=== PATIENT | female | born 1970 | race Caucasian/White ===

== ENCOUNTER 2016-08-16 03:10 | Emergency (ER) | payer SELFPAY ==
[~2016-08-16] VITALS: Ht 171.4 cm; Wt 46.7 kg
[~2016-08-16 03:10] MED LIST: ACET325T9 PO; CHOL100013 PO; LORA10TA68 PO
[2016-08-16 04:20] LABS: BASO # 0.1 x10^3/uL (0.0-0.2); BASO % 1 % (0-3); EOS # 0.5 x10^3/uL (0.0-0.7); EOS % 4 % (0-3); HEMATOCRIT 42.4 % (36.0-47.0); HEMOGLOBIN 14.3 g/dL (12.0-15.5); LYMPH # 2.8 x10^3/uL (1.0-4.8); LYMPH % 27 % (24-48); MEAN CORPUSCULAR HEMOGLOBIN 31 pg (25-35); MEAN CORPUSCULAR HGB CONC 34 g/dL (31-37); MEAN CORPUSCULAR VOLUME 93 fL (79-100); MONO # 0.7 x10^3/uL (0.0-1.1); MONO % 7 % (0-9); NEUT # 6.5 x10^3uL (1.8-7.7); NEUT % 61 % (31-73); PLATELET COUNT 319 x10^3/uL (140-400); RED BLOOD COUNT 4.59 x10^6/uL (3.50-5.40); RED CELL DISTRIBUTION WIDTH 14.3 % (11.5-14.5); WHITE BLOOD COUNT 10.7 x10^3/uL (4.0-11.0)
[2016-08-16 04:29] LABS: BARBITURATES NEG (NEG); BENZODIAZEPINES NEG (NEG); CANNABINOIDS NEG (NEG); COCAINE NEG (NEG); METHADONE NEG (NEG); OPIATES NEG (NEG); PHENCYCLIDINE NEG (NEG)
[2016-08-16 04:30] LABS: AMPHETAMINE/METHAMPHETAMINE NEG (NEG)
[2016-08-16 04:34] LABS: BACTERIA,URINE 0 /HPF (0-FEW); BILIRUBIN,URINE NEG (NEG); CLARITY,URINE CLEAR; COLOR,URINE YELLOW; GLUCOSE,URINE NEG (NEG); NITRITE,URINE NEG (NEG); RBC,URINE RARE /HPF (0-2); SQUAMOUS EPITHELIAL CELL,UR OCC /LPF; UROBILINOGEN,URINE 0.2 mg/dL (0.2 mg/dL); WBC,URINE RARE /HPF (0-4)
[2016-08-16 04:34] LABS: ALBUMIN 4.7 g/dL (3.4-5.0); ALBUMIN/GLOBULIN RATIO 1.3 (1.0-1.7); CALCIUM 9.1 mg/dL (8.5-10.1); CREATININE 0.8 mg/dL (0.6-1.0); GFR 77.9; POTASSIUM 3.7 mmol/L (3.5-5.1); TOTAL BILIRUBIN 0.5 mg/dL (0.2-1.0); TOTAL PROTEIN 8.3 g/dL (6.4-8.2)
--- NOTE | 2016-08-16 05:01 | PHYS DOC ---
Past History Past Medical History: Anxiety, Bipolar, Depression, Gallstones, GERD, Heart Disease, [place], Other Past Surgical History: Other Alcohol Use: None Drug Use: None Adult General Chief Complaint Chief Complaint: OTHER COMPLAINTS HPI HPI Patient is a 46-year-old female with history significant for bipolar affective disorder as well as depression presents here today secondary to having a mental breakdown. Patient feels like she is having a mental breakdown because her house is haunted. Patient reports that she is having visual hallucinations and seeing things in her house. Patient reports that she had a previous, doing exercises when her house however she still seen people as well as cats moving around in her house. Patient reports that she has not been on any of her medication for quite a while and thinks that she is having a nervous breakdown and feels that her mental health is not in a state where she is able to manage and handle her haunted house. Patient is requesting assistance with managing her her mental health. Patient has shown me a picture on her iPhone of what she thinks is an apparition. The patient that I visualized did have some blurriness however I was unable to make out whether or not this was due to technique whether or not there was an apparition on the picture. Patient denies any other symptomatology. Patient has any fevers shakes chills nausea vomiting diarrhea chest pain shortness of breath cough cold or rhinorrhea. Patient denies any suicidal ideation. Patient has any depression. Patient's physical exam is unremarkable. She is alert awake and oriented 3. Patient does not feel that the hallucinations she's having is secondary to mental health issues however she feels her mental health is not an opacity where she is able to manage the visions that she is seeing in her home. She is requesting evaluation by mental health to assist her to be put back on her medications that she has been noncompliant with for several months now. Assessment and plan 46-year-old female presents here today requesting mental health evaluation secondary to having a mental breakdown secondary to what she believes is a haunted house. Patient with a history of bipolar affective disorder and she is noncompliant with her medications at this time. We will have telemetry psych evaluate patient. Patient has been medically cleared. Patient's urine drug screen is negative. Patient's alcohol level 0. Patient's labs are all within normal limits. Review of Systems Review of Systems Constitutional: Denies fever or chills [] Eyes: Denies change in visual acuity, redness, or eye pain [] All other review systems are negative except as documented in the history of present illness portion. Allergies Allergies Allergies Coded Allergies Type Severity Reaction Last Updated Verified No Known Drug Allergies 10/03/14 No Physical Exam Physical Exam Constitutional: Well developed, well nourished, no acute distress, non-toxic appearance. [] HENT: Normocephalic, atraumatic, bilateral external ears normal, Eyes: PERRLA, EOMI, conjunctiva normal, no discharge. [] Neck: Normal range of motion, no tenderness, supple, no stridor. [] Cardiovascular:Heart rate regular rhythm, Lungs & Thorax: Bilateral breath sounds clear to auscultation [] Abdomen: Bowel sounds normal, soft, no tenderness, no masses, no pulsatile masses. [] Skin: Warm, dry, no erythema, no rash. [] Back: No tenderness, no CVA tenderness. [] Extremities: No tenderness, no cyanosis, no clubbing, ROM intact, no edema. [] Neurologic: Alert and oriented X 3, normal motor function, normal sensory function, no focal deficits noted. [] Psychologic: Affect normal, judgement normal, mood normal. [] Current Patient Data Vital Signs Vital Signs Date Time Temp Pulse Resp B/P (MAP) Pulse Ox O2 Delivery O2 Flow Rate FiO2 08/16/16 03:15 97.9 85 18 99 Room Air Lab Results Laboratory Tests Test 08/16/16 03:49 08/16/16 04:05 Urine Collection Type Unknown Urine Color Yellow Urine Clarity Clear Urine pH 6.5 Urine Specific [place] <=1.005 Urine Protein Neg (NEG-TRACE) Urine Glucose (UA) Neg mg/dL (NEG) Urine Ketones (Stick) Neg mg/dL (NEG) Urine Blood Trace (NEG) Urine Nitrite Neg (NEG) Urine Bilirubin Neg (NEG) Urine Urobilinogen Dipstick 0.2 mg/dL (0.2 mg/dL) Urine Leukocyte Esterase Neg (NEG) Urine RBC Rare /HPF (0-2) Urine WBC Rare /HPF (0-4) Urine Squamous Epithelial Cells Occ /LPF Urine Bacteria 0 /HPF (0-FEW) Urine Opiates Screen Neg (NEG) Urine Methadone Screen Neg (NEG) Urine Barbiturates Neg (NEG) Urine Phencyclidine Screen Neg (NEG) Urine Amphetamine/Methamphetamine Neg (NEG) Urine Benzodiazepines Screen Neg (NEG) Urine Cocaine Screen Neg (NEG) Urine Cannabinoids Screen Neg (NEG) Urine Ethyl Alcohol Neg (NEG) White Blood Count 10.7 x10^3/uL (4.0-11.0) Red Blood Count 4.59 x10^6/uL (3.50-5.40) Hemoglobin 14.3 g/dL (12.0-15.5) Hematocrit 42.4 % (36.0-47.0) Mean Corpuscular Volume 93 fL (79-100) Mean Corpuscular Hemoglobin 31 pg (25-35) Mean Corpuscular Hemoglobin Concent 34 g/dL (31-37) Red Cell Distribution Width 14.3 % (11.5-14.5) Platelet Count 319 x10^3/uL (140-400) Neutrophils (%) (Auto) 61 % (31-73) Lymphocytes (%) (Auto) 27 % (24-48) Monocytes (%) (Auto) 7 % (0-9) Eosinophils (%) (Auto) 4 % (0-3) H Basophils (%) (Auto) 1 % (0-3) Neutrophils # (Auto) 6.5 x10^3uL (1.8-7.7) Lymphocytes # (Auto) 2.8 x10^3/uL (1.0-4.8) Monocytes # (Auto) 0.7 x10^3/uL (0.0-1.1) Eosinophils # (Auto) 0.5 x10^3/uL (0.0-0.7) Basophils # (Auto) 0.1 x10^3/uL (0.0-0.2) Sodium Level 141 mmol/L (136-145) Potassium Level 3.7 mmol/L (3.5-5.1) Chloride Level 101 mmol/L (98-107) Carbon Dioxide Level 29 mmol/L (21-32) Anion Gap 11 (6-14) Blood Urea Nitrogen 6 mg/dL (7-20) L Creatinine 0.8 mg/dL (0.6-1.0) Estimated GFR (Cockcroft-Gault) 77.9 BUN/Creatinine Ratio 8 (6-20) Glucose Level 99 mg/dL (70-99) Calcium Level 9.1 mg/dL (8.5-10.1) Total Bilirubin 0.5 mg/dL (0.2-1.0) Aspartate Amino Transferase (AST) 21 U/L (15-37) Alanine Aminotransferase (ALT) 35 U/L (14-59) Alkaline Phosphatase 62 U/L (46-116) Total Protein 8.3 g/dL (6.4-8.2) H Albumin 4.7 g/dL (3.4-5.0) Albumin/Globulin Ratio 1.3 (1.0-1.7) Ethyl Alcohol Level < 10 mg/dL (0-10) EKG EKG [] Radiology/Procedures Radiology/Procedures [] Impressions: Bipolar disease Depression Course & Med Decision Making Course & Med Decision Making Pertinent Labs and Imaging studies reviewed. (See chart for details) Although I was not involved in this lady's care talked with the registered nurse maternal child on the "tele Psych" line. He basically told me that he thought she would do fine on Seroquel 50 mg at bedtime, and that he did not feel that he needed hospitalization but states that she felt she needed to be taken care of if we could try to find placement. At approximately 6:45 AM she told the nurses that she wants to be discharged. I have written a prescription for Seroquel. And she is to follow-up. At the patient's request I called her physician Dr. Licona. I informed Dr. Licona of the patient's visit here and the findings of the telepsych registered nurse maternal child. She expressed surprise that they did not feel that patient needed to be placed however they did feel that we can continue to try to place her. Dr. Licona supported our decision to try to place her , however the patient does not want to wait for this. [] Dragon Disclaimer Dragon Disclaimer This chart was dictated in whole or in part using Voice Recognition software in a busy, high-work load, and often noisy Emergency Department environment. It may contain unintended and wholly unrecognized errors or omissions. Departure Departure: Impression: Primary Impression: Hallucinations Additional Impressions: Anxiety Bipolar affective disorder Referrals: RADHA BE-Epifanio (PCP) Scripts Quetiapine Fumarate (SEROQUEL) 50 Mg Tablet 1 TAB PO QHS, #10 TAB 2 Refills Prov: RADHA VELASQUEZ MD 08/16/16 Problem Qualifiers ROSIBEL SANTACRUZ MD Aug 16, 2016 05:01 RADHA VELASQUEZ MD Aug 16, 2016 06:50
[2016-08-16 06:25] VITALS: BP 109/69
[2016-08-16] MEDS ORDERED: QUET50TA5 PO (06:53)
== END 2016-08-16 07:15 | disposition home or self-care (01) ==
LOC: ER 03:10
DX: R44.3 Hallucinations, unspecified (principal); F31.9 Bipolar disorder, unspecified; F41.9 Anxiety disorder, unspecified; K21.9 Gastro-esophageal reflux disease without esophagitis; I51.9 Heart disease, unspecified; I25.2 Old myocardial infarction
CPT/HCPCS: 36415; 80053; 80305; 80320; 81001; 85027; 99284; G0480; G0481

== ENCOUNTER 2016-09-12 18:42 | Emergency (ER) | payer MEDICAID ==
[~2016-09-12] VITALS: Ht 171.4 cm; Wt 47.6 kg
[~2016-09-12 18:42] MED LIST changes: +QUET50TA5 PO
--- NOTE | 2016-09-12 21:03 | PHYS DOC ---
Text Text Patient was checked out to me to be evaluated for possible admission for her depression. She is not SI or HI. She was seen by guidance Center and offer outpatient follow-up there. Patient's being discharged home. She is return the ER she has any thoughts of harming herself or anybody else, or has any other concerns. She's to follow-up the guidance Center later today. Steve with the guidance Center evaluated her and states she's safe to be discharged. (OLY AWAN MD) General Chief Complaint: ANXIETY/PANIC ATTACK Stated Complaint: UNABLE TO CARE FOR SELF Time Seen by MD: 19:07 Source: patient, old records Exam Limitations: clinical condition Problems: (LAUREN FLORES DO) Time Seen by MD: 09:24 Problems: (OLY AWAN MD) History of Present Illness Initial Comments Patient is a 46-year-old female with history of bipolar disorder who comes to the ED complaining of anxiety and inability to care for herself. Patient states that her house is haunted and that she sees people and cats in her house who should not be there. She says she is at the end of her rope and is unable to tolerate living in a haunted house any longer. She claims to have photographs of ghosts and is requesting that we find her a new place to live. She freely admits that she has 5 psychiatric disorders but states they have nothing to do with why she is coming here tonight. She also admits to noncompliance with her medications. She denies any physical complaints she denies suicidal or homicidal ideation. Patient presented to this facility with nearly identical complaint and history of present illness on August 16 of this year, she was medically cleared for tele- psych evaluation. On that day tele-psych did not feel she required inpatient treatment and recommended that she be discharged home taking Seroquel at bedtime. Patient follows with Dr. Licona for primary care issues. Timing/Duration: unsure Severity: severe Modifying Factors: improves with other Associated Symptoms: other (LAUREN FLORES DO) Allergies: Coded Allergies: No Known Drug Allergies (Unverified , 10/03/14) Past Medical History Medical History: other (CAD, gallstones, GERD, [place], noncompliance with medications) Surgical History: angioplasty Psychosocial History: anxiety, bipolar, depression (LAUREN FLORES DO) Social History Smoker: non-smoker Alcohol: none Drugs: none (LAUREN FLORES DO) Review of Systems Constitutional: denies chills, denies fever Respiratory: denies cough, denies shortness of breath Cardiovascular: denies chest pain, denies palpitations Gastrointestinal: denies nausea, denies vomiting Genitourinary: denies frequency, denies hematuria Musculoskeletal: denies back pain, denies joint swelling, denies neck pain Psychiatric/Neurological: see HPI Hematologic/Lymphatic: denies easy bleeding, denies easy bruising (LAUREN FLORES DO) Physical Exam General Appearance: no apparent distress, thin Eyes: bilateral eye normal inspection, bilateral eye PERRL, bilateral eye EOMI Ear, Nose, Throat: hearing grossly normal, normal ENT inspection, normal pharynx Neck: non-tender, supple Respiratory: normal breath sounds, no respiratory distress Cardiovascular: normal peripheral pulses, regular rate, rhythm Gastrointestinal: non tender, soft Back: no CVA tenderness, no vertebral tenderness Extremities: normal range of motion, non-tender Neurologic/Psychiatric: certified paralegal II-XII nml as tested, no motor/sensory deficits, alert, depressed affect, other (although pt has altered thought process she is AOx3. +visual hallucinations reported, none witnessed in ED) Skin: normal color, warm/dry (LAUREN FLORES DO) Orders, Labs, Meds EKG: NSR 87 bpm, no STEMI. Interpreted by Dr Flores CBC w/diff, CMP, UA, Trop I, UDS, etoh all unremarkable. Salicylate 1.8, acetaminophen <2 2254: Pt cleared for telepsych evaluation 0120: Pt has been sleeping, VSS, no complaints. Telepsych is talking with the patient currently. 0204: Tele-psych diagnosis: Bipolar 1 disorder, current or most recent episode depressed, with psychotic features Recommendations: Transfer patient to inpatient psychiatric facility for acute stabilization once medically cleared. Continue observation precautions and monitoring for suicidality and paranoia Restart Seroquel at prior discharge dose or 50 mg daily at bedtime if unable to verify home dose and for medication management to primary team at inpatient facility. May use hydroxyzine 25 mg by mouth every 6 hours when necessary anxiety in the interim additionally. Consider contacting family with the patient's permission during daytimes hours if needed for collateral information Patient would likely benefit from outpatient counseling or therapy for distress intolerance and coping skills once discharged from the inpatient unit 0206: ED staff trying to find placement. 0438: Patient is sleeping, while sleeping her SBP does dip to low 80's maintaining O2sats > 90%. She is easily rousable and denies any symptoms. RN still seeking placement. 0614: Placement pending, pt signed out to Dr Awan at 0600 shift change. (LAUREN FLORES DO) Departure Time of Disposition: 02:07 (LAUREN FLORES DO) Disposition: 01 HOME, SELF-CARE Diagnosis: bipolar 1 disorder with psychotic features Condition: STABLE Patient Instructions: Depression, Adult Additional Instructions: You were seen today for your depression. Your being discharged home. You were seen by the guidance Center and you can go there for a follow-up and they can help you fill out paperwork and obtain medicines. LAUREN FLORES DO Sep 12, 2016 21:03 OLY AWAN MD Sep 13, 2016 09:39
[2016-09-12 21:58] LABS: BASO # 0.1 x10^3/uL (0.0-0.2); BASO % 1 % (0-3); EOS # 0.4 x10^3/uL (0.0-0.7); EOS % 5 % (0-3); HEMATOCRIT 40.1 % (36.0-47.0); HEMOGLOBIN 13.6 g/dL (12.0-15.5); LYMPH # 3.1 x10^3/uL (1.0-4.8); LYMPH % 40 % (24-48); MEAN CORPUSCULAR HEMOGLOBIN 32 pg (25-35); MEAN CORPUSCULAR HGB CONC 34 g/dL (31-37); MEAN CORPUSCULAR VOLUME 95 fL (79-100); MONO # 0.5 x10^3/uL (0.0-1.1); MONO % 6 % (0-9); NEUT # 3.8 x10^3uL (1.8-7.7); NEUT % 48 % (31-73); PLATELET COUNT 313 x10^3/uL (140-400); RED BLOOD COUNT 4.25 x10^6/uL (3.50-5.40); WHITE BLOOD COUNT 7.9 x10^3/uL (4.0-11.0)
[2016-09-12 22:06] LABS: CALCIUM 8.7 mg/dL (8.5-10.1); CREATININE 0.8 mg/dL (0.6-1.0); DIRECT BILIRUBIN 0.1 mg/dL (0.0-0.2); GFR 77.9; POTASSIUM 3.8 mmol/L (3.5-5.1); TOTAL BILIRUBIN 0.3 mg/dL (0.2-1.0); TOTAL PROTEIN 6.8 g/dL (6.4-8.2)
[2016-09-12 22:24] LABS: SALIC 1.8 mg/dL (2.8-20.0)
[2016-09-12 22:25] LABS: ACETAMIN < 2.0 mcg/mL (10-30); ETHANOL < 10 mg/dL (0-10)
[2016-09-12 22:35] LABS: BILIRUBIN,URINE NEG (NEG); CLARITY,URINE HAZY; COLOR,URINE YELLOW; GLUCOSE,URINE NEG (NEG); NITRITE,URINE NEG (NEG); UROBILINOGEN,URINE 1 mg/dL (0.2 mg/dL)
[2016-09-12 22:36] LABS: AMPHETAMINE/METHAMPHETAMINE NEG (NEG); BACTERIA,URINE 0 /HPF (0-FEW); BARBITURATES NEG (NEG); BENZODIAZEPINES NEG (NEG); CANNABINOIDS NEG (NEG); COCAINE NEG (NEG); METHADONE NEG (NEG); OPIATES NEG (NEG); PHENCYCLIDINE NEG (NEG); SQUAMOUS EPITHELIAL CELL,UR FEW /LPF
--- NOTE | 2016-09-13 02:38 | EKG ---
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
[2016-09-13 09:31] VITALS: BP 100/60
== END 2016-09-13 09:55 | disposition home or self-care (01) ==
LOC: ER 18:42
DX: F28 Other psychotic disorder not due to a substance or known physiological condition (principal); F31.9 Bipolar disorder, unspecified; I25.10 Atherosclerotic heart disease of native coronary artery without angina pectoris; K21.9 Gastro-esophageal reflux disease without esophagitis; I25.2 Old myocardial infarction; Z98.61 Coronary angioplasty status; Z91.14 Patient's other noncompliance with medication regimen
CPT/HCPCS: 36415; 80048; 80076; 80305; 81001; 84484; 85027; 87086; 93005; 99285; G0480; G0481

== ENCOUNTER 2016-09-30 16:09 | Emergency (ER) | payer MEDICAID, OTHER ==
[~2016-09-30] VITALS: Ht 171.4 cm; Wt 47.6 kg
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
[2016-09-30 16:57] LABS: AMPHETAMINE/METHAMPHETAMINE NEG (NEG); BARBITURATES NEG (NEG); BENZODIAZEPINES NEG (NEG); CANNABINOIDS NEG (NEG); COCAINE NEG (NEG); METHADONE NEG (NEG); OPIATES NEG (NEG); PHENCYCLIDINE NEG (NEG)
[2016-09-30 17:00] LABS: BACTERIA,URINE 0 /HPF (0-FEW); BILIRUBIN,URINE NEG (NEG); CLARITY,URINE CLEAR; COLOR,URINE YELLOW; GLUCOSE,URINE NEG (NEG); NITRITE,URINE NEG (NEG); SQUAMOUS EPITHELIAL CELL,UR FEW /LPF; UROBILINOGEN,URINE 0.2 mg/dL (0.2 mg/dL)
[2016-09-30 17:09] LABS: BASO # 0.1 x10^3/uL (0.0-0.2); BASO % 2 % (0-3); EOS # 0.4 x10^3/uL (0.0-0.7); EOS % 5 % (0-3); HEMATOCRIT 39.3 % (36.0-47.0); HEMOGLOBIN 13.4 g/dL (12.0-15.5); LYMPH # 2.4 x10^3/uL (1.0-4.8); LYMPH % 33 % (24-48); MEAN CORPUSCULAR HEMOGLOBIN 32 pg (25-35); MEAN CORPUSCULAR HGB CONC 34 g/dL (31-37); MEAN CORPUSCULAR VOLUME 95 fL (79-100); MONO # 0.4 x10^3/uL (0.0-1.1); MONO % 5 % (0-9); NEUT # 3.9 x10^3uL (1.8-7.7); NEUT % 55 % (31-73); PLATELET COUNT 288 x10^3/uL (140-400); RED BLOOD COUNT 4.14 x10^6/uL (3.50-5.40); RED CELL DISTRIBUTION WIDTH 13.9 % (11.5-14.5); WHITE BLOOD COUNT 7.2 x10^3/uL (4.0-11.0)
[2016-09-30 17:44] LABS: CALCIUM 8.9 mg/dL (8.5-10.1); CREATININE 0.8 mg/dL (0.6-1.0); DIRECT BILIRUBIN 0.1 mg/dL (0.0-0.2); GFR 77.9; MAGNESIUM 2.4 mg/dL (1.8-2.4); POTASSIUM 3.9 mmol/L (3.5-5.1); TOTAL BILIRUBIN 0.4 mg/dL (0.2-1.0); TOTAL PROTEIN 6.9 g/dL (6.4-8.2)
[2016-09-30 17:46] LABS: ACETAMIN < 2 mcg/mL (10-30); ETHANOL < 10 mg/dL (0-10); SALIC 3.5 mg/dL (2.8-20.0)
[2016-09-30] MEDS ORDERED: OLANZapine 10 MG TABLET PO ONE (20:30)
[2016-09-30 23:00] VITALS: BP 102/62
== END 2016-09-30 23:15 ==
LOC: EEVIPCON 16:09 → ER 16:09
DX: R45.850 Homicidal ideations (principal); R44.0 Auditory hallucinations; R44.1 Visual hallucinations; F20.9 Schizophrenia, unspecified; F31.9 Bipolar disorder, unspecified; F41.9 Anxiety disorder, unspecified; K21.9 Gastro-esophageal reflux disease without esophagitis; F17.210 Nicotine dependence, cigarettes, uncomplicated; I25.2 Old myocardial infarction; I51.9 Heart disease, unspecified; F12.10 Cannabis abuse, uncomplicated
CPT/HCPCS: 36415; 80048; 80076; 80307; 81001; 82306; 82607; 83540; 83550; 83735; 84443; 85027; 99285; G0480; G0479

== ENCOUNTER 2016-10-15 23:21 | Emergency (ER) | payer OTHER ==
[~2016-10-15] VITALS: Ht 171.4 cm; Wt 47.6 kg
[2016-10-16 00:09] LABS: CLARITY,URINE CLEAR; COLOR,URINE STRAW
[2016-10-16 00:10] LABS: BILIRUBIN,URINE NEG (NEG); GLUCOSE,URINE NEG (NEG); NITRITE,URINE NEG (NEG); UROBILINOGEN,URINE 0.2 mg/dL (0.2 mg/dL)
[2016-10-16 00:11] LABS: BACTERIA,URINE FEW /HPF (0-FEW); RBC,URINE RARE /HPF (0-2); SQUAMOUS EPITHELIAL CELL,UR OCC /LPF; WBC,URINE 0 /HPF (0-4)
[2016-10-16] MEDS ORDERED: CYCLOBENZAPRINE 10 MG TABLET. PO ONE (00:15)
[2016-10-16] MEDS ORDERED: flexeril (00:19)
[2016-10-16 00:21] VITALS: BP 106/78
--- NOTE | 2016-10-16 00:29 | PHYS DOC ---
Past History Past Medical History: Anxiety, Bipolar, Depression, Gallstones, GERD, Heart Disease, [place], Other Past Surgical History: Hysterectomy, Other Smoking: Cigarettes, Greater than 1 pack/day Alcohol Use: None Drug Use: Marijuana Adult General Chief Complaint Chief Complaint: BACK PAIN OR INJURY HPI HPI Patient is a 46 year old F who presents with chronic back pain. Carmela states that over the past 3 days her chronic upper back pain has been worse. She feels that it worsens throughout the day and is worse at night. She states that when the pain is severe she notices nausea and shortness of breath. She denies both of these symptoms on evaluation. She states that since she arrived via EMS her pain is radiated to the lower back. She feels that her pain is worsened with movement and palpation. She feels that her pain is improved with rest and positioning. She also has chronic abdominal pain stating that she has had everything removed as it can be removed and is waiting for multiple tests on her abdomen. Review of Systems Review of Systems Constitutional: Denies fever or chills [] Eyes: Denies change in visual acuity, redness, or eye pain [] HENT: Denies nasal congestion or sore throat [] Respiratory: Denies cough or shortness of breath [] Cardiovascular: No additional information not addressed in HPI [] GI: Negative except history of present illness : Denies dysuria or hematuria [] Musculoskeletal: Negative except history of present illness Integument: Denies rash or skin lesions [] Neurologic: Denies headache, focal weakness or sensory changes [] Endocrine: Denies polyuria or polydipsia [] Family History Family History Noncontributory Current Medications Current Medications Medications were reviewed. Allergies Allergies Allergies Coded Allergies Type Severity Reaction Last Updated Verified No Known Drug Allergies 10/03/14 No Physical Exam Physical Exam Constitutional: Well developed, well nourished, no acute distress, non-toxic appearance. [] HENT: Normocephalic, atraumatic, bilateral external ears normal, oropharynx moist, no oral exudates, nose normal. [] Eyes: PERRLA, EOMI, conjunctiva normal, no discharge. [] Neck: Normal range of motion, no tenderness, supple, no stridor. [] Cardiovascular:Heart rate regular rhythm, no murmur [] Lungs & Thorax: Bilateral breath sounds clear to auscultation [] Abdomen: Bowel sounds normal, soft, no masses, no pulsatile masses. [] Inconsistent exam. Occasional generalized tenderness to palpation of proportion with exam. Skin: Warm, dry, no erythema, no rash. [] Back: Mild tenderness to palpation in the paraspinal muscles in the thoracic and lumbar region. No obvious signs of injury. No bony tenderness Extremities: No tenderness, no cyanosis, no clubbing, ROM intact, no edema. [] Neurologic: Alert and oriented X 3, normal motor function, normal sensory function, no focal deficits noted. [] Psychologic: Affect normal, judgement normal, mood normal. [] Current Patient Data Vital Signs Vital Signs Date Time Temp Pulse Resp B/P (MAP) Pulse Ox O2 Delivery O2 Flow Rate FiO2 10/15/16 23:26 97.6 81 20 100 Room Air Lab Results Laboratory Tests Test 10/15/16 23:45 Urine Collection Type Unknown Urine Color Straw Urine Clarity Clear Urine pH 7.0 Urine Specific [place] 1.010 Urine Protein Neg (NEG-TRACE) Urine Glucose (UA) Neg mg/dL (NEG) Urine Ketones (Stick) Neg mg/dL (NEG) Urine Blood Neg (NEG) Urine Nitrite Neg (NEG) Urine Bilirubin Neg (NEG) Urine Urobilinogen Dipstick 0.2 mg/dL (0.2 mg/dL) Urine Leukocyte Esterase Neg (NEG) Urine RBC Rare /HPF (0-2) Urine WBC 0 /HPF (0-4) Urine Squamous Epithelial Cells Occ /LPF Urine Transitional Epithelial Cells Occ /LPF Urine Bacteria Few /HPF (0-FEW) Course & Med Decision Making Course & Med Decision Making Pertinent Labs and Imaging studies reviewed. (See chart for details) Carmeal describes her symptom is chronic other than the pain radiating to her lower back. Dragon Disclaimer Dragon Disclaimer This chart was dictated in whole or in part using Voice Recognition software in a busy, high-work load, and often noisy Emergency Department environment. It may contain unintended and wholly unrecognized errors or omissions. Departure Departure: Impression: Primary Impression: Muscle spasm Disposition: HOME, SELF-CARE Condition: STABLE Referrals: NON,STAFF (PCP) Patient Instructions: Back Pain, Adult Additional Instructions: Carmela was seen in the emergency room for back pain. No emergency medical condition was found on history or physical exam. She does have a history of chronic upper back pain however she feels that it has been radiating to the lower back since her ambulance ride this evening. Her pain was most consistent with muscle spasm. She was given Flexeril and the emergency room and a prescription. She is advised follow-up with her primary care doctor as soon as possible for any further management of her chronic medical conditions. She is advised to return to emergency room if she develops new or worsening symptoms Scripts [flexeril] No Conflict Check 5 MG TID Y for PAIN for 3 Days, #10 TAB 0 Refills Prov: ALBERT EUCEDA MD 10/16/16 ALBERT EUCEDA MD Oct 16, 2016 00:29
== END 2016-10-16 00:38 | disposition home or self-care (01) ==
LOC: ER 23:21
DX: M62.830 Muscle spasm of back (principal); G89.29 Other chronic pain; K21.9 Gastro-esophageal reflux disease without esophagitis; I25.2 Old myocardial infarction; F17.210 Nicotine dependence, cigarettes, uncomplicated
CPT/HCPCS: 81001; 99283

== ENCOUNTER 2018-06-14 17:20 | Emergency (ER) | payer OTHER ==
[~2018-06-14] VITALS: Ht 171.4 cm; Wt 53.7 kg
[~2018-06-14 17:20] MED LIST changes: +flexeril
--- NOTE | 2018-06-14 17:49 | PHYS DOC ---
Past History Past Medical History: Anxiety, Bipolar, Depression, Gallstones, GERD, Heart Disease, [place], Other Additional Past Medical Histor: schizoaffective disorder Past Surgical History: Hysterectomy, Other Smoking: Cigarettes, Greater than 1 pack/day Alcohol Use: None Drug Use: Marijuana Adult General Chief Complaint Chief Complaint: SUICDAL IDEATION HPI HPI Patient is a 48-year-old female with suicidal ideation and plan, taken knife to her wrists. She reports she "lost it all, my house, my daughter, my car." She denies taking anything to hurt herself. She reports increased smoking yesterday of cigarettes. Reports her last use of marijuana was yesterday as well. Denies any homicidal ideation. Denies any hallucinations.[] Review of Systems Review of Systems Constitutional: Denies fever or chills [] Eyes: Denies change in visual acuity, redness, or eye pain [] HENT: Denies nasal congestion or sore throat [] Respiratory: Denies cough or shortness of breath [] Cardiovascular: No chest pain or palpitations[] GI: Denies abdominal pain, nausea, vomiting, bloody stools or diarrhea [] : Denies dysuria or hematuria [] Musculoskeletal: Denies back pain or joint pain [] Integument: Denies rash or skin lesions [] Neurologic: Denies headache, focal weakness or sensory changes [] Endocrine: Denies polyuria or polydipsia [] All other systems were reviewed and found to be within normal limits, except as documented in this note. Allergies Allergies Allergies Coded Allergies Type Severity Reaction Last Updated Verified No Known Drug Allergies 10/03/14 No Physical Exam Physical Exam Constitutional: Well developed, well nourished, no acute distress, non-toxic appearance. [] HENT: Normocephalic, atraumatic, bilateral external ears normal, oropharynx moist, no oral exudates, nose normal. [] Eyes: PERRLA, EOMI, conjunctiva normal, no discharge. [] Neck: Normal range of motion, no tenderness, supple, no stridor. [] Cardiovascular:Heart rate regular rhythm, no murmur [] Lungs & Thorax: Bilateral breath sounds clear to auscultation [] Abdomen: Bowel sounds normal, soft, no tenderness, no masses, no pulsatile masses. [] Skin: Warm, dry, no erythema, no rash. [] Back: No tenderness, no CVA tenderness. [] Extremities: No tenderness, no cyanosis, no clubbing, ROM intact, no edema. [] Neurologic: Alert and oriented X 3, normal motor function, normal sensory function, no focal deficits noted. [] Psychologic: Affect tearful, mood depressed. [] EKG EKG [] Radiology/Procedures Radiology/Procedures [] Course & Med Decision Making Course & Med Decision Making Pertinent Labs and Imaging studies reviewed. (See chart for details) ED course: Patient arrived, was placed in bed, and tolerated exam well. At the time of this dictation labs are pending for medical clearance, and patient care is endorsed to the oncoming physician at 1800. Received patient at 6 AM with no significant interval changes overnight. Patient has been deemed clear bilaterally mental health evaluation team. She has contracted for safety. She is medically stable, and considered by mental health expert safe for discharge to home from a mental health standpoint.[] Dragon Disclaimer Dragon Disclaimer This electronic medical record was generated, in whole or in part, using a voice recognition dictation system. Departure Departure: Impression: Primary Impression: Adjustment disorder Disposition: HOME, SELF-CARE Condition: IMPROVED Referrals: NON,STAFF (PCP) Patient Instructions: Adjustment Disorder, Suicidal Feelings, How to Help Yourself Additional Instructions: Follow-up with the guidance Center at [address] [place] [id number]. Keep your appointment as scheduled. If you do not have an appointment scheduled , they have a crisis walk-in clinic as well. Return to the ER if thinking about hurting yourself, anyone else, or any other concerns. Problem Qualifiers Primary Impression: Adjustment disorder Adjustment disorder type: unspecified type Qualified Codes: F43.20 - Adjustment disorder, unspecified HAILEE GEORGE DO Jun 14, 2018 17:49
[2018-06-14 18:03] LABS: BASO # 0.1 x10^3/uL (0.0-0.2); BASO % 1 % (0-3); EOS # 0.1 x10^3/uL (0.0-0.7); EOS % 1 % (0-3); HEMATOCRIT 44.5 % (36.0-47.0); HEMOGLOBIN 15.3 g/dL (12.0-15.5); LYMPH # 1.7 x10^3/uL (1.0-4.8); LYMPH % 27 % (24-48); MEAN CORPUSCULAR HEMOGLOBIN 30 pg (25-35); MEAN CORPUSCULAR HGB CONC 34 g/dL (31-37); MEAN CORPUSCULAR VOLUME 89 fL (79-100); MONO # 0.6 x10^3/uL (0.0-1.1); MONO % 9 % (0-9); NEUT % 62 % (31-73); PLATELET COUNT 384 x10^3/uL (140-400); RED BLOOD COUNT 5.03 x10^6/uL (3.50-5.40); RED CELL DISTRIBUTION WIDTH 15.2 % (11.5-14.5); WHITE BLOOD COUNT 6.4 x10^3/uL (4.0-11.0)
[2018-06-14 18:05] LABS: BILIRUBIN,URINE LARGE (NEG); CLARITY,URINE CLOUDY; COLOR,URINE AMBER; GLUCOSE,URINE NEG (NEG)
[2018-06-14 18:06] LABS: BACTERIA,URINE 0 /HPF (0-FEW); BARBITURATES NEG (NEG); BENZODIAZEPINES POS (NEG); CANNABINOIDS POS (NEG); COCAINE NEG (NEG); METHADONE NEG (NEG); NITRITE,URINE NEG (NEG); OPIATES NEG (NEG); PHENCYCLIDINE NEG (NEG); RBC,URINE 0 /HPF (0-2); SQUAMOUS EPITHELIAL CELL,UR OCC /LPF; UROBILINOGEN,URINE 1 mg/dL (0.2 mg/dL); WBC,URINE 0 /HPF (0-4)
[2018-06-14 18:14] LABS: AMPHETAMINE/METHAMPHETAMINE NEG (NEG)
[2018-06-14 18:19] LABS: ACETAMIN < 2 mcg/mL (10-30)
[2018-06-14 18:21] LABS: ALBUMIN 4.2 g/dL (3.4-5.0); ALBUMIN/GLOBULIN RATIO 1.1 (1.0-1.7); CALCIUM 9.5 mg/dL (8.5-10.1); CREATININE 0.9 mg/dL (0.6-1.0); GFR 67.4; MAGNESIUM 2.2 mg/dL (1.8-2.4); POTASSIUM 3.2 mmol/L (3.5-5.1); TOTAL BILIRUBIN 0.5 mg/dL (0.2-1.0); TOTAL PROTEIN 8.1 g/dL (6.4-8.2)
[2018-06-14 19:05] LABS: % BASOS 1 % (0-3); % LYMPHS 33 % (24-48); % MONOS 8 % (0-10); % SEGS 58 % (35-66); PLT ESTIMATE ADEQUATE (ADEQUATE)
[2018-06-14 19:06] LABS: ANISOCYTOSIS SLIGHT; HYPOCHROMIA SLIGHT
[2018-06-14] MEDS ORDERED: POTASSIUM CHLORIDE 20 MEQ TABLET.ER. PO ONE (19:15)
[2018-06-15] MEDS ORDERED: clonazePAM 1 MG TABLET PO ONE (08:15)
[2018-06-15] MEDS ORDERED: NEOMY/BACITR/POLYMYXIN OINT PACKET. TP ONE (16:00)
[2018-06-15 17:37] VITALS: BP 126/54
== END 2018-06-15 17:42 | disposition home or self-care (01) ==
LOC: ER 17:20
DX: F43.20 Adjustment disorder, unspecified (principal); F41.9 Anxiety disorder, unspecified; F31.9 Bipolar disorder, unspecified; F25.9 Schizoaffective disorder, unspecified; K21.9 Gastro-esophageal reflux disease without esophagitis; I25.2 Old myocardial infarction; F17.210 Nicotine dependence, cigarettes, uncomplicated; F12.10 Cannabis abuse, uncomplicated
CPT/HCPCS: 36415; 80053; 80307; 80329; 81001; 83735; 85007; 85025; 99284; G0480; 82003

== ENCOUNTER 2018-06-16 10:11 | Emergency (ER) | payer MEDICARE, OTHER ==
[~2018-06-16] VITALS: Ht 171.4 cm; Wt 53.5 kg
--- NOTE | 2018-06-16 10:52 | PHYS DOC ---
Past History Past Medical History: Anxiety, Bipolar, Depression, Gallstones, GERD, Heart Disease, [place] Additional Past Medical Histor: schizoaffective disorder Past Surgical History: Hysterectomy, Other Smoking: Cigarettes, Greater than 1 pack/day Alcohol Use: None Drug Use: Marijuana Adult General Chief Complaint Chief Complaint: DEPRESSION HPI HPI 48-year-old female presents with depression and stating that she "has nowhere to go." I question her she tells me that she has "lost everything" and "it's too late". She is repeated these phrases several times. She was recently evaluated for depression and given a safety plan. She states things are working and she is really upset about not having money or place to live for her 14-year- old daughter. She does say that her son is coming in from out of town tomorrow. When I ask her where she stayed last night, she says at home. She says that she "cannot pack the house" and she is "now homeless." She denies any medical complaints. She denies suicidal or homicidal ideation. Review of Systems Review of Systems Constitutional: Denies fever or chills [] Eyes: Denies change in visual acuity, redness, or eye pain [] HENT: Denies nasal congestion or sore throat [] Respiratory: Denies cough or shortness of breath [] Cardiovascular: No additional information not addressed in HPI [] GI: Denies abdominal pain, nausea, vomiting, bloody stools or diarrhea [] : Denies dysuria or hematuria [] Musculoskeletal: Denies back pain or joint pain [] Integument: Denies rash or skin lesions [] Neurologic: Denies headache, focal weakness or sensory changes [] Endocrine: Denies polyuria or polydipsia [] All other systems were reviewed and found to be within normal limits, except as documented in this note. Allergies Allergies Allergies Coded Allergies Type Severity Reaction Last Updated Verified No Known Drug Allergies 10/03/14 No Physical Exam Physical Exam Constitutional: Well developed, well nourished, no acute distress, non-toxic appearance. [] HENT: Normocephalic, atraumatic, bilateral external ears normal, oropharynx moist, no oral exudates, nose normal. [] Eyes: PERRLA, EOMI, conjunctiva normal, no discharge. [] Neck: Normal range of motion, no tenderness, supple, no stridor. [] Cardiovascular:Heart rate regular rhythm, no murmur [] Lungs & Thorax: Bilateral breath sounds clear to auscultation [] Abdomen: Bowel sounds normal, soft, no tenderness, no masses, no pulsatile masses. [] Skin: Warm, dry, no erythema, no rash. [] Back: No tenderness, no CVA tenderness. [] Extremities: No tenderness, no cyanosis, no clubbing, ROM intact, no edema. [] Neurologic: Alert and oriented X 3, normal motor function, normal sensory function, no focal deficits noted. [] Psychologic: Affect flat, judgement normal, mood depressed. Slowed speech, but appropriate. [] Current Patient Data Vital Signs Vital Signs Date Time Temp Pulse Resp B/P (MAP) Pulse Ox O2 Delivery O2 Flow Rate FiO2 06/16/18 10:20 97.4 99 20 100 Room Air EKG EKG [] Radiology/Procedures Radiology/Procedures [] Course & Med Decision Making Course & Med Decision Making Pertinent Labs and Imaging studies reviewed. (See chart for details) The patient's labs are unremarkable. Her urine drug screen is positive for marijuana. She is medically cleared for psychiatric evaluation. The psychiatric evaluation as determined that the patient should be involuntarily held due to her severe depression and "complete hopelessness". Placement is pending. The patient was getting quite anxious. I gave her 5 mg of Haldol IM and 25 mg of hydroxyzine. [] Dragon Disclaimer Dragon Disclaimer This electronic medical record was generated, in whole or in part, using a voice recognition dictation system. Departure Departure: Impression: Primary Impression: Severe depression Disposition: XFER SHT-TRM HOSP Condition: STABLE Referrals: PCP,DIXON (PCP) KIRIT BRANDON DO Jun 16, 2018 10:52
[2018-06-16 11:12] LABS: BASO % 1 % (0-3); EOS % 0 % (0-3); LYMPH # 1.2 x10^3/uL (1.0-4.8); LYMPH % 11 % (24-48); MEAN CORPUSCULAR HEMOGLOBIN 31 pg (25-35); MEAN CORPUSCULAR HGB CONC 34 g/dL (31-37); MEAN CORPUSCULAR VOLUME 90 fL (79-100); MONO # 0.5 x10^3/uL (0.0-1.1); MONO % 5 % (0-9); NEUT # 8.7 x10^3uL (1.8-7.7); NEUT % 83 % (31-73); PLATELET COUNT 331 x10^3/uL (140-400); RED BLOOD COUNT 5.24 x10^6/uL (3.50-5.40); RED CELL DISTRIBUTION WIDTH 15.3 % (11.5-14.5); WHITE BLOOD COUNT 10.5 x10^3/uL (4.0-11.0)
[2018-06-16 11:26] LABS: BACTERIA,URINE 0 /HPF (0-FEW); BILIRUBIN,URINE NEG (NEG); CLARITY,URINE CLEAR; COLOR,URINE YELLOW; GLUCOSE,URINE NEG (NEG); NITRITE,URINE NEG (NEG); RBC,URINE 0 /HPF (0-2); UROBILINOGEN,URINE 0.2 mg/dL (0.2 mg/dL); WBC,URINE 0 /HPF (0-4)
[2018-06-16 11:38] LABS: AMPHETAMINE/METHAMPHETAMINE NEG (NEG); BARBITURATES NEG (NEG); BENZODIAZEPINES NEG (NEG); CANNABINOIDS POS (NEG); COCAINE NEG (NEG); METHADONE NEG (NEG); OPIATES NEG (NEG); PHENCYCLIDINE NEG (NEG)
[2018-06-16 11:52] LABS: ALBUMIN 3.8 g/dL (3.4-5.0); ALBUMIN/GLOBULIN RATIO 1.1 (1.0-1.7); CALCIUM 9.2 mg/dL (8.5-10.1); CREATININE 0.7 mg/dL (0.6-1.0); GFR 90.1; POTASSIUM 3.5 mmol/L (3.5-5.1); TOTAL BILIRUBIN 0.5 mg/dL (0.2-1.0); TOTAL PROTEIN 7.4 g/dL (6.4-8.2)
[2018-06-16] MEDS ORDERED: HALOPERIDOL LACT 5 MG/ML VIAL. IM ONE (17:00)
[2018-06-16] MEDS ORDERED: hydrOXYzine HCL 25 MG TABLET PO ONE (17:00)
[2018-06-17] MEDS ORDERED: NICOTINE 21MG PATCH. TD ONE (13:45)
[2018-06-17] MEDS ORDERED: hydrOXYzine HCL 25 MG TABLET PO STA (13:58)
[2018-06-17] MEDS ORDERED: HALOPERIDOL LACT 5 MG/ML VIAL. ONE (13:59)
[2018-06-17] MEDS ORDERED: HALOPERIDOL LACT 5 MG/ML VIAL. IM ONE (14:00)
[2018-06-17] MEDS ORDERED: hydrALAZINE 10 MG TABLET ONE (14:02)
[2018-06-17 15:00] VITALS: BP 112/86
== END 2018-06-17 15:55 | disposition short-term general hospital (02) ==
LOC: ER 10:11
DX: F32.9 Major depressive disorder, single episode, unspecified (principal); F41.9 Anxiety disorder, unspecified; K21.9 Gastro-esophageal reflux disease without esophagitis; I25.2 Old myocardial infarction; F20.9 Schizophrenia, unspecified; F17.210 Nicotine dependence, cigarettes, uncomplicated
CPT/HCPCS: 36415; 80053; 80307; 81001; 85025; 96372; 99285; J1630

== ENCOUNTER → 2018-09-19 | Emergency (ER) | payer OTHER, MEDICAID ==
[~2018-09-19] VITALS: Ht 171.4 cm; Wt 53.7 kg
[~2018-09-19] MED LIST changes: +IV NORMAL SALINE 1,000ML 1,000 ML IV SCH; +LORA0.5T PO; +POTASSIUM BICARB 25 MEQ EFFERVESCENT TAB. PO ONE
[2018-09-19 20:29] LABS: BACTERIA,URINE 0 /HPF (0-FEW); BILIRUBIN,URINE NEG (NEG); CLARITY,URINE HAZY; COLOR,URINE YELLOW; GLUCOSE,URINE NEG (NEG); NITRITE,URINE NEG (NEG); RBC,URINE 0 /HPF (0-2); SQUAMOUS EPITHELIAL CELL,UR OCC /LPF; UROBILINOGEN,URINE 0.2 mg/dL (0.2 mg/dL); WBC,URINE 0 /HPF (0-4)
[2018-09-19 20:31] LABS: BASO % 0 % (0-3); EOS # 0.2 x10^3/uL (0.0-0.7); EOS % 4 % (0-3); HEMATOCRIT 44.7 % (36.0-47.0); HEMOGLOBIN 15.3 g/dL (12.0-15.5); LYMPH # 2.7 x10^3/uL (1.0-4.8); LYMPH % 40 % (24-48); MEAN CORPUSCULAR HEMOGLOBIN 32 pg (25-35); MEAN CORPUSCULAR HGB CONC 34 g/dL (31-37); MEAN CORPUSCULAR VOLUME 94 fL (79-100); MONO # 0.6 x10^3/uL (0.0-1.1); MONO % 9 % (0-9); NEUT # 3.2 x10^3uL (1.8-7.7); NEUT % 47 % (31-73); PLATELET COUNT 343 x10^3/uL (140-400); RED BLOOD COUNT 4.75 x10^6/uL (3.50-5.40); RED CELL DISTRIBUTION WIDTH 16.4 % (11.5-14.5); WHITE BLOOD COUNT 6.7 x10^3/uL (4.0-11.0)
[2018-09-19 20:36] LABS: AMPHETAMINE/METHAMPHETAMINE NEG (NEG); BARBITURATES NEG (NEG); BENZODIAZEPINES NEG (NEG); CANNABINOIDS POS (NEG); COCAINE NEG (NEG); METHADONE NEG (NEG); OPIATES NEG (NEG); PHENCYCLIDINE NEG (NEG)
[2018-09-19 22:01] LABS: ALBUMIN 3.5 g/dL (3.4-5.0); ALBUMIN/GLOBULIN RATIO 1.2 (1.0-1.7); CALCIUM 8.7 mg/dL (8.5-10.1); CREATININE 0.8 mg/dL (0.6-1.0); GFR 77.2; TOTAL BILIRUBIN 0.4 mg/dL (0.2-1.0); TOTAL PROTEIN 6.5 g/dL (6.4-8.2)
[2018-09-19 22:02] LABS: ACETAMIN 3.9 mcg/mL (10-30); ETHANOL < 10 mg/dL (0-10); SALIC 7.2 mg/dL (2.8-20.0)
--- NOTE | 2018-09-19 23:42 | PHYS DOC ---
Past History Past Medical History: Anxiety, Bipolar, Depression, Gallstones, GERD, Heart Disease, [place] Additional Past Medical Histor: schizoaffective disorder Past Surgical History: Hysterectomy, Other Smoking: Cigarettes, Greater than 1 pack/day Alcohol Use: None Drug Use: Marijuana Adult General Chief Complaint Chief Complaint: SUICDAL IDEATION HPI HPI Patient is a 48-year-old female who presents with complaint of feeling very anxious, stating that she has not been on her medication for nearly a week. She states that she has been having some thoughts of self-harm but has no plan. She denies any homicidal ideations. She states that she just feels like her skin is crawling and she is not able to control the anxiety. She denies any chest pain or shortness breath.[] Review of Systems Review of Systems Constitutional: Denies fever or chills [] Respiratory: Denies cough or shortness of breath [] Cardiovascular: No additional information not addressed in HPI [] GI: Denies abdominal pain, nausea, vomiting or diarrhea [] Integument: Denies rash or skin lesions [] Neurologic: Denies headache, focal weakness or sensory changes [] Psychiatric: Complains of severe anxiety, depression and suicidal ideations.[] All other systems were reviewed and found to be within normal limits, except as documented in this note. Current Medications Current Medications Current Medications Medications (Trade) Dose Ordered Sig/Zheng Start Time Stop Time Status Last Admin Dose Admin Lorazepam (Ativan Inj) 1 mg 1X ONCE 09/19/18 20:15 09/19/18 20:16 DC 09/19/18 20:19 1 MG Potassium Bicarbonate (Klyte/Cl) 50 meq 1X ONCE 09/19/18 22:30 09/19/18 22:31 DC 09/19/18 23:24 50 MEQ Sodium Chloride 1,000 ml @ 1,000 mls/hr Q1H 09/19/18 19:52 09/19/18 20:52 DC 09/19/18 20:16 1,000 MLS/HR Allergies Allergies Allergies Coded Allergies Type Severity Reaction Last Updated Verified No Known Drug Allergies 10/03/14 No Physical Exam Physical Exam Constitutional: Well developed, well nourished, no acute distress, non-toxic appearance. [] HENT: Normocephalic, atraumatic, bilateral external ears normal, oropharynx moist, no oral exudates, nose normal. [] Eyes: PERRLA, EOMI, conjunctiva normal, no discharge. [] Neck: Normal range of motion, no tenderness, supple, no stridor. [] Cardiovascular: Mildly tachycardic rate with regular rhythm[] Lungs & Thorax: Bilateral breath sounds clear to auscultation [] Abdomen: Bowel sounds normal, soft, no tenderness. [] Skin: Warm, dry, no erythema, no rash. [] Extremities: No tenderness, no cyanosis, no clubbing, ROM intact, no edema. [] Neurologic: Alert and oriented 3, no focal deficits noted. [] Psychologic: Flattened affect, moderately anxious, depressed. [] Current Patient Data Vital Signs Vital Signs Date Time Temp Pulse Resp B/P (MAP) Pulse Ox O2 Delivery O2 Flow Rate FiO2 09/19/18 23:25 99 19 120/67 (84) 97 Room Air Lab Results Laboratory Tests Test 09/19/18 19:35 09/19/18 20:04 09/19/18 21:25 Urine Collection Type Unknown Urine Color Yellow Urine Clarity Hazy Urine pH 5.5 Urine Specific [place] <=1.005 Urine Protein Neg (NEG-TRACE) Urine Glucose (UA) Neg mg/dL (NEG) Urine Ketones (Stick) Neg mg/dL (NEG) Urine Blood Trace (NEG) Urine Nitrite Neg (NEG) Urine Bilirubin Neg (NEG) Urine Urobilinogen Dipstick 0.2 mg/dL (0.2 mg/dL) Urine Leukocyte Esterase Neg (NEG) Urine RBC 0 /HPF (0-2) Urine WBC 0 /HPF (0-4) Urine Squamous Epithelial Cells Occ /LPF Urine Bacteria 0 /HPF (0-FEW) Urine Opiates Screen Neg (NEG) Urine Methadone Screen Neg (NEG) Urine Barbiturates Neg (NEG) Urine Phencyclidine Screen Neg (NEG) Urine Amphetamine/Methamphetamine Neg (NEG) Urine Benzodiazepines Screen Neg (NEG) Urine Cocaine Screen Neg (NEG) Urine Cannabinoids Screen Pos (NEG) Urine Ethyl Alcohol Neg (NEG) White Blood Count 6.7 x10^3/uL (4.0-11.0) Red Blood Count 4.75 x10^6/uL (3.50-5.40) Hemoglobin 15.3 g/dL (12.0-15.5) Hematocrit 44.7 % (36.0-47.0) Mean Corpuscular Volume 94 fL (79-100) Mean Corpuscular Hemoglobin 32 pg (25-35) Mean Corpuscular Hemoglobin Concent 34 g/dL (31-37) Red Cell Distribution Width 16.4 % (11.5-14.5) H Platelet Count 343 x10^3/uL (140-400) Neutrophils (%) (Auto) 47 % (31-73) Lymphocytes (%) (Auto) 40 % (24-48) Monocytes (%) (Auto) 9 % (0-9) Eosinophils (%) (Auto) 4 % (0-3) H Basophils (%) (Auto) 0 % (0-3) Neutrophils # (Auto) 3.2 x10^3uL (1.8-7.7) Lymphocytes # (Auto) 2.7 x10^3/uL (1.0-4.8) Monocytes # (Auto) 0.6 x10^3/uL (0.0-1.1) Eosinophils # (Auto) 0.2 x10^3/uL (0.0-0.7) Basophils # (Auto) 0.0 x10^3/uL (0.0-0.2) Sodium Level 141 mmol/L (136-145) Potassium Level 3.0 mmol/L (3.5-5.1) L Chloride Level 106 mmol/L (98-107) Carbon Dioxide Level 24 mmol/L (21-32) Anion Gap 11 (6-14) Blood Urea Nitrogen 8 mg/dL (7-20) Creatinine 0.8 mg/dL (0.6-1.0) Estimated GFR (Cockcroft-Gault) 77.2 BUN/Creatinine Ratio 10 (6-20) Glucose Level 104 mg/dL (70-99) H Calcium Level 8.7 mg/dL (8.5-10.1) Total Bilirubin 0.4 mg/dL (0.2-1.0) Aspartate Amino Transferase (AST) 11 U/L (15-37) L Alanine Aminotransferase (ALT) 11 U/L (14-59) L Alkaline Phosphatase 67 U/L (46-116) Total Protein 6.5 g/dL (6.4-8.2) Albumin 3.5 g/dL (3.4-5.0) Albumin/Globulin Ratio 1.2 (1.0-1.7) Salicylates Level 7.2 mg/dL (2.8-20.0) Salicylate Last Dose Date Unknown Salicylate Last Dose Time Unknown Acetaminophen Level 3.9 mcg/mL (10-30) L Acetaminophen Last Dose Date Unknown Acetaminophen Last Dose Time Unknown Ethyl Alcohol Level < 10 mg/dL (0-10) EKG EKG [] Radiology/Procedures Radiology/Procedures [] Course & Med Decision Making Course & Med Decision Making Pertinent Labs and Imaging studies reviewed. (See chart for details) A mental health workup was completed on this patient after which mental health was consulted. Early after arrival, patient had been given a dose of lorazepam, 1 mg IV. Patient did report almost complete resolution of symptoms and after interview with all health, patient wanted to be discharged and signed a safety contract with plan to follow-up with outpatient mental health. Mental health did request that I write prescription for lorazepam until she is able to get in for outpatient therapy. Dragon Disclaimer Dragon Disclaimer This electronic medical record was generated, in whole or in part, using a voice recognition dictation system. Departure Departure: Impression: Primary Impression: Anxiety Additional Impression: Depression with suicidal ideation Disposition: 01 HOME, SELF-CARE Condition: STABLE Referrals: ALBERTINA WRIGHT MD (PCP) Patient Instructions: Anxiety and Panic Attacks, Depression, Adult, Suicidal Feelings, How to Help Yourself Additional Instructions: Follow-up with outpatient mental health as directed. Return to emergency room immediately if you have further thoughts of self-harm. Scripts Lorazepam (LORAZEPAM) 0.5 Mg Tablet 1 TAB PO BID PRN for ANXIETY / AGITATION, #14 TAB Prov: JEREMY JIMENEZ Jr. DO 09/19/18 Problem Qualifiers JEREMY JIMENEZ Jr. DO Sep 19, 2018 23:42
[2018-09-19 23:48] VITALS: BP 116/77
== END ==
LOC: ER 19:26
DX: F41.9 Anxiety disorder, unspecified (principal); F31.9 Bipolar disorder, unspecified; K21.9 Gastro-esophageal reflux disease without esophagitis; I25.2 Old myocardial infarction; F20.9 Schizophrenia, unspecified; F17.210 Nicotine dependence, cigarettes, uncomplicated
CPT/HCPCS: 36415; 80053; 80307; 80329; 81001; 85025; 96374; 99285; G0480; J2060; 82003; J7030

== ENCOUNTER 2018-09-21 16:03 | Emergency (ER) | payer OTHER, MEDICAID ==
[~2018-09-21] VITALS: Ht 170.2 cm; Wt 54.0 kg
[~2018-09-21 16:03] MED LIST changes: -IV NORMAL SALINE 1,000ML 1,000 ML IV SCH; -POTASSIUM BICARB 25 MEQ EFFERVESCENT TAB. PO ONE
--- NOTE | 2018-09-21 16:13 | PHYS DOC ---
Past History Past Medical History: Anxiety, Bipolar, Depression, Gallstones, GERD, Heart Disease, [place] Additional Past Medical Histor: schizoaffective disorder (HAILEE GEORGE DO) Past Surgical History: Hysterectomy, Other (HAILEE GEORGE DO) Smoking: Cigarettes, Greater than 1 pack/day Alcohol Use: None Drug Use: Marijuana (HAILEE GEORGE DO) Adult General Chief Complaint Chief Complaint: ANXIETY/PANIC ATTACK HPI HPI Patient is a 48-year-old female with suicidal ideation intermittently for the past week, anxiety, no specific plan at this time. She reports that she cannot remember her plan is to how she would hurt herself. She was seen at the crisis evaluation portion of the [facility] today and sent to the emergency department for further evaluation. She denies doing anything to hurt herself. She denies any chest pain or palpitations. She reports being taken off of her mental health medicines approximately a week ago. [] (HAILEE GEORGE DO) Review of Systems Review of Systems Constitutional: Denies fever or chills [] Eyes: Denies change in visual acuity, redness, or eye pain [] HENT: Denies nasal congestion or sore throat [] Respiratory: Denies cough or shortness of breath [] Cardiovascular: No chest pain or palpitations[] GI: Denies abdominal pain, nausea, vomiting, bloody stools or diarrhea [] : Denies dysuria or hematuria [] Musculoskeletal: Denies back pain or joint pain [] Integument: Denies rash or skin lesions [] Neurologic: Denies headache, focal weakness or sensory changes [] Endocrine: Denies polyuria or polydipsia [] All other systems were reviewed and found to be within normal limits, except as documented in this note. (HAILEE GEORGE DO) Allergies Allergies Allergies Coded Allergies Type Severity Reaction Last Updated Verified No Known Drug Allergies 10/03/14 No (HAILEE GEORGE DO) Physical Exam Physical Exam Constitutional: Well developed, well nourished, no acute distress, non-toxic appearance. [] HENT: Normocephalic, atraumatic, bilateral external ears normal, oropharynx moist, no oral exudates, nose normal. [] Eyes: PERRLA, EOMI, conjunctiva normal, no discharge. [] Neck: Normal range of motion, no tenderness, supple, no stridor. [] Cardiovascular:Heart rate regular rhythm, no murmur [] Lungs & Thorax: Bilateral breath sounds clear to auscultation [] Abdomen: Bowel sounds normal, soft, no tenderness, no masses, no pulsatile masses. [] Skin: Warm, dry, no erythema, no rash. [] Back: No tenderness, no CVA tenderness. [] Extremities: No tenderness, no cyanosis, no clubbing, ROM intact, no edema. [] Neurologic: Alert and oriented X 3, normal motor function, normal sensory function, no focal deficits noted. [] Psychologic: Affect flat, depressed mood, rocking back and forth on the bed, denies any current suicidal or homicidal ideation. Denies hallucinations. [] (HAILEE GEORGE DO) EKG EKG [] (HAILEE GEORGE DO) Radiology/Procedures Radiology/Procedures [] (HAILEE GEORGE DO) Course & Med Decision Making Course & Med Decision Making Pertinent Labs and Imaging studies reviewed. (See chart for details) ED course: Patient arrived, and bed, and tolerated exam well. After obtaining urine, she was given Ativan to help with what appears to be anxiety well awaiting the return of the rest of her labs and evaluation by the mental health team. Patient was found to be medically stable for mental health evaluation.[] (HAILEE GEORGE DO) Course & Med Decision Making Patient has received her mental health evaluation and has been accepted to [facility]. (JEREMY JIMENEZ Jr., DO) Dragon Disclaimer Dragon Disclaimer This electronic medical record was generated, in whole or in part, using a voice recognition dictation system. (HAILEE GEORGE DO) Departure Departure: Impression: Primary Impression: Depression with suicidal ideation Disposition: 65 XFER TO PSYCH HOSP/UNIT Condition: STABLE Referrals: ALBERTINA WRIGHT MD (PCP) HAILEE GEORGE DO Sep 21, 2018 16:13 JEREMY JIMENEZ Jr., DO Sep 21, 2018 21:54
[2018-09-21 16:42] LABS: BASO # 0.1 x10^3/uL (0.0-0.2); BASO % 1 % (0-3); EOS # 0.2 x10^3/uL (0.0-0.7); EOS % 2 % (0-3); HEMATOCRIT 44.7 % (36.0-47.0); HEMOGLOBIN 15.2 g/dL (12.0-15.5); LYMPH % 24 % (24-48); MEAN CORPUSCULAR HEMOGLOBIN 32 pg (25-35); MEAN CORPUSCULAR HGB CONC 34 g/dL (31-37); MEAN CORPUSCULAR VOLUME 94 fL (79-100); MONO # 0.5 x10^3/uL (0.0-1.1); MONO % 6 % (0-9); NEUT # 5.4 x10^3uL (1.8-7.7); NEUT % 67 % (31-73); PLATELET COUNT 302 x10^3/uL (140-400); RED BLOOD COUNT 4.75 x10^6/uL (3.50-5.40); RED CELL DISTRIBUTION WIDTH 16.9 % (11.5-14.5); WHITE BLOOD COUNT 8.1 x10^3/uL (4.0-11.0)
[2018-09-21] MEDS: LORazepam 1 MG TABLET PO ONE (16:44)
[2018-09-21 16:57] LABS: ALBUMIN 3.9 g/dL (3.4-5.0); ALBUMIN/GLOBULIN RATIO 1.2 (1.0-1.7); CALCIUM 9.4 mg/dL (8.5-10.1); CREATININE 0.7 mg/dL (0.6-1.0); GFR 90.1; TOTAL BILIRUBIN 0.4 mg/dL (0.2-1.0); TOTAL PROTEIN 7.1 g/dL (6.4-8.2)
[2018-09-21 17:00] LABS: PREG TEST PT QUAL NEGATIVE (NEG)
[2018-09-21 17:01] LABS: ACETAMIN < 2.0 mcg/mL (10-30); SALIC 7.7 mg/dL (2.8-20.0)
[2018-09-21 17:02] LABS: AMPHETAMINE/METHAMPHETAMINE NEG (NEG); BARBITURATES NEG (NEG); BENZODIAZEPINES NEG (NEG); CANNABINOIDS POS (NEG); COCAINE NEG (NEG); ETHANOL < 10 mg/dL (0-10); METHADONE NEG (NEG); OPIATES NEG (NEG); PHENCYCLIDINE NEG (NEG)
[2018-09-21 17:06] LABS: BACTERIA,URINE 0 /HPF (0-FEW); BILIRUBIN,URINE NEG (NEG); CLARITY,URINE CLEAR; COLOR,URINE STRAW; GLUCOSE,URINE NEG (NEG); NITRITE,URINE NEG (NEG); RBC,URINE 0 /HPF (0-2); SQUAMOUS EPITHELIAL CELL,UR OCC /LPF; UROBILINOGEN,URINE 0.2 mg/dL (0.2 mg/dL); WBC,URINE OCC /HPF (0-4)
[2018-09-21 22:00] VITALS: BP 91/55
== END 2018-09-21 23:17 ==
LOC: ER 16:03
DX: F32.89 Other specified depressive episodes (principal); F20.9 Schizophrenia, unspecified; F41.9 Anxiety disorder, unspecified; K21.9 Gastro-esophageal reflux disease without esophagitis; I25.2 Old myocardial infarction; F17.210 Nicotine dependence, cigarettes, uncomplicated
CPT/HCPCS: 36415; 80053; 80307; 80329; 81001; 84703; 85025; 85610; 99285; G0480; 82003

== ENCOUNTER 2018-10-18 15:36 | Emergency (ER) | payer MEDICAID, OTHER ==
[~2018-10-18] VITALS: Ht 170.2 cm; Wt 54.0 kg
--- NOTE | 2018-10-18 15:53 | PHYS DOC ---
Past History Past Medical History: Bipolar Additional Past Medical Histor: schizoaffective disorder (WU GOODMAN DO) Past Surgical History: Hysterectomy, Other (WU GOODMAN DO) Smoking: Cigarettes, Greater than 1 pack/day Alcohol Use: None Drug Use: Marijuana (WU GOODMAN DO) Adult General Chief Complaint Chief Complaint: MANIC BEH[facility]IOR [facility] HPI The patient is a pleasant 48 year old female who presents for evaluation of feeling overwhelmed. She is well-known to this emergency department or a history of anxiety and depression. She states that she has been taking her medications but that they have not been helping and she does not know what to do. She is followed at [facility]. She denies suicidal or homicidal thoughts this time but his shaking and appears quite uncomfortable. She shares custody of her 15 y/o daughter with her who is currently watching her child but is supposed to work [employer] at which point the pt is supposed to take her back. She is alert and oriented �4, appears anxious, but is in no distress this time. She denies headache, neck pain, chest pain or shortness of breath, abdominal or back pain, nausea or vomiting, fevers or chills, dizziness or syncope. (WU GOODMAN DO) Review of Systems Review of Systems Constitutional: Denies fever or chills [] Eyes: Denies change in visual acuity, redness, or eye pain [] HENT: Denies nasal congestion or sore throat [] Respiratory: Denies cough or shortness of breath [] Cardiovascular: No additional information not addressed in HPI [] GI: Denies abdominal pain, nausea, vomiting, bloody stools or diarrhea [] : Denies dysuria or hematuria [] Musculoskeletal: Denies back pain or joint pain [] Integument: Denies rash or skin lesions [] Neurologic: Denies headache, focal weakness or sensory changes [] Endocrine: Denies polyuria or polydipsia [] Psych: feels overwhelmed All other systems were reviewed and found to be within normal limits, except as documented in this note. (WU GOODMAN DO) Allergies Allergies Allergies Coded Allergies Type Severity Reaction Last Updated Verified No Known Drug Allergies 09/21/18 No (WU GOODMAN DO) Physical Exam Physical Exam Constitutional: Well developed, well nourished, no acute distress, non-toxic appearance. [] HENT: Normocephalic, atraumatic, bilateral external ears normal, oropharynx moist, no oral exudates, nose normal. [] Eyes: PERRLA, EOMI, conjunctiva normal, no discharge. [] Neck: Normal range of motion, no tenderness, supple, no stridor. [] Cardiovascular:Heart rate regular rhythm, no murmur [] Lungs & Thorax: Bilateral breath sounds clear to auscultation [] Abdomen: Bowel sounds normal, soft, no tenderness, no masses, no pulsatile masses. [] Skin: Warm, dry, no erythema, no rash. [] Back: No tenderness, no CVA tenderness. [] Extremities: No tenderness, no cyanosis, no clubbing, ROM intact, no edema. [] Neurologic: Alert and oriented X 3, normal motor function, normal sensory function, no focal deficits noted. [] Psychologic: [] flat affect, appears anxious and uncomfortable, denies SI/HI (WU GOODMAN DO) EKG EKG [] (WU GOODMAN DO) Radiology/Procedures Radiology/Procedures [] (WU GOODMAN DO) Course & Med Decision Making Course & Med Decision Making Pertinent Labs and Imaging studies reviewed. (See chart for details) @1725 - Pt medically cleared at this time. Awaiting psych evaluation. @1800 - Pt care transferred to Dr. Harmon at this time. (WU GOODMAN DO) Course & Med Decision Making 2100: I assumed care of patient from Dr. Goodman at 1800. The patient received psychiatric evaluation by Dr. Lim through telemetry psych. Based off his evalu ation, he recommends the patient be found placement for inpatient psychiatry. At this time we will contact local facilities to find inpatient psychiatric placement. 0045: The patient was accepted to [facility] inpatient psychiatric facility. Accepting physician is Dr. Stone. Patient will be transferred by ground ambulance tonight. (PATO HARMON MD) Dragon Disclaimer Dragon Disclaimer This electronic medical record was generated, in whole or in part, using a voice recognition dictation system. (WU GOODMAN DO) Departure Departure: Impression: Primary Impression: Anxiety Disposition: 65 XFER TO PSYCH HOSP/UNIT Condition: STABLE Referrals: ALBERTINA WRIGHT MD (PCP) WU GOODMAN DO Oct 18, 2018 15:53 PATO HARMON MD Oct 18, 2018 21:02
[2018-10-18 17:09] LABS: BASO # 0.1 x10^3/uL (0.0-0.2); BASO % 1 % (0-3); EOS # 0.1 x10^3/uL (0.0-0.7); EOS % 1 % (0-3); HEMATOCRIT 44.9 % (36.0-47.0); HEMOGLOBIN 15.6 g/dL (12.0-15.5); LYMPH # 1.7 x10^3/uL (1.0-4.8); LYMPH % 17 % (24-48); MEAN CORPUSCULAR HEMOGLOBIN 33 pg (25-35); MEAN CORPUSCULAR HGB CONC 35 g/dL (31-37); MEAN CORPUSCULAR VOLUME 94 fL (79-100); MONO # 0.6 x10^3/uL (0.0-1.1); MONO % 6 % (0-9); NEUT # 7.6 x10^3uL (1.8-7.7); NEUT % 75 % (31-73); PLATELET COUNT 343 x10^3/uL (140-400); RED BLOOD COUNT 4.76 x10^6/uL (3.50-5.40); WHITE BLOOD COUNT 10.2 x10^3/uL (4.0-11.0)
[2018-10-18 17:11] LABS: BARBITURATES NEG (NEG); BENZODIAZEPINES NEG (NEG); CANNABINOIDS POS (NEG); COCAINE NEG (NEG); METHADONE NEG (NEG); OPIATES NEG (NEG); PHENCYCLIDINE NEG (NEG)
[2018-10-18 17:12] LABS: AMPHETAMINE/METHAMPHETAMINE NEG (NEG)
[2018-10-18 17:15] LABS: BILIRUBIN,URINE NEG (NEG); CLARITY,URINE CLEAR; COLOR,URINE STRAW; GLUCOSE,URINE NEG (NEG); NITRITE,URINE NEG (NEG); RBC,URINE 0 /HPF (0-2); UROBILINOGEN,URINE 0.2 mg/dL (0.2 mg/dL)
[2018-10-18 17:16] LABS: BACTERIA,URINE 0 /HPF (0-FEW); SQUAMOUS EPITHELIAL CELL,UR OCC /LPF; WBC,URINE OCC /HPF (0-4)
[2018-10-18 17:20] LABS: ALBUMIN 4.1 g/dL (3.4-5.0); CALCIUM 9.3 mg/dL (8.5-10.1); CREATININE 0.9 mg/dL (0.6-1.0); DIRECT BILIRUBIN 0.1 mg/dL (0.0-0.2); GFR 67.4; MAGNESIUM 2.3 mg/dL (1.8-2.4); POTASSIUM 3.5 mmol/L (3.5-5.1); TOTAL BILIRUBIN 0.4 mg/dL (0.2-1.0); TOTAL PROTEIN 7.6 g/dL (6.4-8.2)
[2018-10-18 17:22] LABS: SALIC 8.3 mg/dL (2.8-20.0)
[2018-10-18 17:23] LABS: ACETAMIN < 2.0 mcg/mL (10-30); ETHANOL < 10 mg/dL (0-10)
--- NOTE | 2018-10-18 18:26 | EKG ---
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
[2018-10-19 01:12] VITALS: BP 97/59
== END 2018-10-19 01:41 ==
LOC: ER 15:36
DX: F41.9 Anxiety disorder, unspecified (principal); F31.9 Bipolar disorder, unspecified; F20.9 Schizophrenia, unspecified; F17.210 Nicotine dependence, cigarettes, uncomplicated
CPT/HCPCS: 36415; 80048; 80076; 80307; 80329; 81001; 83735; 85025; 93005; 99285; G0480; 82003

== ENCOUNTER → 2019-06-22 | Outpatient (CLI) | payer OTHER, MEDICAID | END | disposition home or self-care (01) | LOC: PMG 09:02 | PROVIDERS: ATTEND Family Medicine | DX: E55.9 Vitamin D deficiency, unspecified (principal); E78.5 Hyperlipidemia, unspecified | CPT/HCPCS: 80061; 82306 ==

== ENCOUNTER 2019-09-12 15:57 | Emergency (ER) | payer MEDICAID, OTHER ==
[~2019-09-12] VITALS: Ht 170.2 cm; Wt 73.2 kg
[2019-09-12 16:41] LABS: BASO # 0.1 x10^3/uL (0.0-0.2); BASO % 1 % (0-3); EOS # 0.2 x10^3/uL (0.0-0.7); EOS % 3 % (0-3); HEMATOCRIT 46.2 % (36.0-47.0); HEMOGLOBIN 15.8 g/dL (12.0-15.5); LYMPH # 2.1 x10^3/uL (1.0-4.8); LYMPH % 33 % (24-48); MEAN CORPUSCULAR HEMOGLOBIN 32 pg (25-35); MEAN CORPUSCULAR HGB CONC 34 g/dL (31-37); MEAN CORPUSCULAR VOLUME 93 fL (79-100); MONO # 0.5 x10^3/uL (0.0-1.1); MONO % 9 % (0-9); NEUT # 3.5 x10^3uL (1.8-7.7); NEUT % 55 % (31-73); PLATELET COUNT 370 x10^3/uL (140-400); RED BLOOD COUNT 4.99 x10^6/uL (3.50-5.40); RED CELL DISTRIBUTION WIDTH 14.9 % (11.5-14.5); WHITE BLOOD COUNT 6.4 x10^3/uL (4.0-11.0)
--- NOTE | 2019-09-12 16:43 | RAD ---
CHEST AP ONLY History: Chest pain Comparison: None. Findings: Single view of the chest is submitted. There is no lobar consolidation, dependent pleural fluid, or pneumothorax. There is likely some mild interstitial opacity of the mid to inferior right hemithorax and left lung base. Impression: 1. There is no lobar infiltrate. There is mild interstitial opacity of the mid to inferior right hemithorax and left lung base which may be mild interstitial infiltrate or edema. Electronically signed by: Buddy Bolaños MD (09/12/2019 4:40 PM) [id number]
--- NOTE | 2019-09-12 17:17 | EKG ---
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
--- NOTE | 2019-09-12 17:38 | PHYS DOC ---
Past History Past Medical History: Bipolar Additional Past Medical Histor: schizoaffective disorder (BAYRON DE LA TORRE MD) Past Surgical History: Hysterectomy, Other (BAYRON DE LA TORRE MD) Smoking: Cigarettes, Greater than 1 pack/day Alcohol Use: None Drug Use: Marijuana (BAYRON DE LA TORRE MD) General Adult EDM: Chief Complaint: CHEST PAIN HPI: HPI: Patient is a 49-year-old female presenting with shortness of breath cough and chest pain for a week patient feels like is just hard for her to breathe. She says that she feels like her shirt is suffocating her she feels like the mask is suffocating her she has a longtime smoker she had some kind of chest and shoulder pain and some shortness of breath with a cough her doctor gave her an inhaler but it is not helping so she came to the emergency room for evaluation no COVID-19 exposure that she knows of. The chest pain is not really worse with exertion in fact it is more shortness of breath with coughing. No fever that she knows of. No leg swelling Medications include olanzapine other psychiatric medication allergies no known drug allergies social history she smokes heavily. (BAYRON DE LA TORRE MD) Review of Systems: Review of Systems: Constitutional: Denies fever or chills Eyes: Denies change in visual acuity Musculoskeletal: Denies back pain or joint pain Integument: Denies rash Neurologic: Denies headache, focal weakness or sensory changes Endocrine: Denies polyuria or polydipsia (BAYRON DE LA TORRE MD) Heart Score: HEART Score for Chest Pain: HEART Score for Chest Pain Response (Comments) Value History Slighlty/Non-Suspicious 0 ECG Normal 0 Age >45 - < 65 1 Risk Factors 1 or 2 Risk Factors 1 Troponin < Normal Limit 0 Total 2 Risk Factors: Risk Factors: DM, Current or recent (<one month) smoker, HTN, HLP, family history of CAD, obesity. Risk Scores: Score 0 - 3: 2.5% MACE over next 6 weeks - Discharge Home Score 4 - 6: 20.3% MACE over next 6 weeks - Admit for Clinical Observation Score 7 - 10: 72.7% MACE over next 6 weeks - Early Invasive Strategies (BAYRON DE LA TORRE MD) Current Medications: Current Meds: Current Medications Medications (Trade) Dose Ordered Sig/Zheng Start Time Stop Time Status Last Admin Dose Admin Lorazepam (Ativan Inj) 1 mg 1X ONCE 09/12/19 17:15 09/12/19 17:22 DC 09/12/19 17:32 1 MG (BAYRON DE LA TORRE MD) Allergies: Allergies: Allergies Coded Allergies Type Severity Reaction Last Updated Verified No Known Drug Allergies 09/21/18 No (BAYRON DE LA TORRE MD) Physical Exam: PE: Constitutional: Well developed, well nourished, no acute distress, non-toxic appearance. [] HENT: Normocephalic, atraumatic, bilateral external ears normal, oropharynx moist, no oral exudates, nose normal. [] Eyes: PERRLA, EOMI, conjunctiva normal, no discharge. [] Neck: Normal range of motion, no tenderness, supple, no stridor. [] Cardiovascular:Heart rate regular rhythm, no murmur [] Lungs & Thorax: There is coarse breath sounds bilaterally no overt wheezing Abdomen: Bowel sounds normal, soft, no tenderness, no masses, no pulsatile masses. [] Skin: Warm, dry, no erythema, no rash. [] Back: No tenderness, no CVA tenderness. [] Extremities: No tenderness, no cyanosis, no clubbing, ROM intact, no edema. [] Neurologic: Alert and oriented X 3, normal motor function, normal sensory function, no focal deficits noted. [] Psychologic: Anxiety noted patient appears tachypneic but it appears volitional after dose of Ativan it resolved completely respiratory it is 15 on reevaluation. (BAYRON DE LA TORRE MD) PE: Constitutional: Well developed, well nourished, no acute distress HENT: Normocephalic, atraumatic Lungs & Thorax: No respiratory distress, equal chest rise and fall Neurologic: Alert and oriented X 3, speech normal Psychologic: Affect normal, judgment normal (ANA CHADWICK DO) Current Patient Data: Labs: Laboratory Tests Test 09/12/19 16:05 White Blood Count 6.4 x10^3/uL (4.0-11.0) Red Blood Count 4.99 x10^6/uL (3.50-5.40) Hemoglobin 15.8 g/dL (12.0-15.5) H Hematocrit 46.2 % (36.0-47.0) Mean Corpuscular Volume 93 fL (79-100) Mean Corpuscular Hemoglobin 32 pg (25-35) Mean Corpuscular Hemoglobin Concent 34 g/dL (31-37) Red Cell Distribution Width 14.9 % (11.5-14.5) H Platelet Count 370 x10^3/uL (140-400) Neutrophils (%) (Auto) 55 % (31-73) Lymphocytes (%) (Auto) 33 % (24-48) Monocytes (%) (Auto) 9 % (0-9) Eosinophils (%) (Auto) 3 % (0-3) Basophils (%) (Auto) 1 % (0-3) Neutrophils # (Auto) 3.5 x10^3uL (1.8-7.7) Lymphocytes # (Auto) 2.1 x10^3/uL (1.0-4.8) Monocytes # (Auto) 0.5 x10^3/uL (0.0-1.1) Eosinophils # (Auto) 0.2 x10^3/uL (0.0-0.7) Basophils # (Auto) 0.1 x10^3/uL (0.0-0.2) D-Dimer (Marleni) 0.33 mg/L (0.00-0.50) (BAYRON DE LA TORRE MD) EKG: EKG: EKG shows normal sinus rhythm with a rate of 68 no acute STEMI or ischemia was identified. [] (BAYRON DE LA TORRE MD) Radiology/Procedures: Radiology/Procedures: [] Impressions: Impression: 1. There is no lobar infiltrate. There is mild interstitial opacity of the mid to inferior right hemithorax and left lung base which may be mild interstitial infiltrate or edema. Electronically signed by: Vero Rehman MD (09/12/2019 4:40 PM) [id number] DICTATED AND SIGNED BY: VERO REHMAN MD DATE: 09/12/19 1640 CC: BAYRON DE LA TORRE MD; ALBERTINA WRIGHT MD ~ (BAYRON DE LA TORRE MD) Course & Med Decision Making: Course & Med Decision Making Pertinent Labs and Imaging studies reviewed. (See chart for details) [] This is a 49 old female with a history of psychiatric illness as well as long smoking history presenting with a week of cough shortness of breath and some chest discomfort. Chest x-ray there could be an interstitial component I think bronchitis is most likely clinically she is very well-appearing her tachypnea resolved completely with a single dose of Ativan. 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 Chadwick pending the results of that. Regarding the chest pain her heart score is a 2 I think it is okay for her to be discharged home does not sound cardiac. Prescription for doxycycline was prepped for anticipated discharge. COVID-19 is a possibility but patient's oxygenation is adequate chest x-ray is not consistent with that recommended to maintain social distance and wear a mask usual precautions return precautions discussed. (BAYRON DE LA TORRE MD) Course & Med Decision Making 1800- Sign out received from Dr. De La Torre for patient with report of atypical chest pain pending laboratory data. EKG stable. Labs reviewed. Troponin and d-dimer WNL. CXR with concern for possible infiltrate. Patient denies known exposure to COVID-19. Sats stable. COVID precautions provided. Patient seen and evaluated by myself. Rx for doxycycline provided to patient as written by Dr. De La Torre. Patient stable for discharge with outpatient follow-up with PCP. Discussed findings and plan with patient, who acknowledges understanding and agreement. (ANA CHADWICK DO) Kalee Disclaimer: Kalee Disclaimer: This electronic medical record was generated, in whole or in part, using a voice recognition dictation system. (BAYRON DE LA TORRE MD) Departure Departure: Impression: Primary Impression: Bronchitis Disposition: 01 HOME/RESIDENCE PRIOR TO ADM Condition: STABLE Referrals: ALBERTINA WRIGHT MD (PCP) Patient Instructions: Acute Bronchitis, [id number] Additional Instructions: You have been tested for or diagnosed with COVID-19. It is an infection caused by a new type of coronavirus. COVID-19 will cause cold-like or mild flu symptoms in most. It can cause more severe symptoms like problems breathing in some. There is no treatment for COVID-19. The body will clear the infection over time. Self-care will help to ease discomfort. Steps to Take: Self-Care Rest as needed. Healthy habits may help you feel better. Steps include: Choose healthy foods including fruits and vegetables. Drink water throughout the day. Get plenty of sleep each night. If you smoke, try to quit. It may ease breathing. Avoid alcohol. Keep Others Healthy The virus can spread to others. Droplets are released every time you sneeze or cough. The droplets can get into the mouth, nose, or eyes of people near you and lead to infection. To lower the chances of spreading COVID-19 to others: Stay at home until your doctor has said it is safe to leave. If you tested positive this will mean staying isolated until both of the following are true: At least 7 days have passed since the start of illness. You are free of fever for at least 72 hours without the use of medicine. During this time: - Avoid public areas, events, or transportation. Do not return to work or [facility] until your doctor has said it is safe to do so. - Call ahead if you need to go to a medical center. Let them know you may have COVID-19. It will help them guide you where to go. They may also ask you to wear a facemask when you come to the office. - If you call for emergency medical services, let them know you may have COVID- 19. While at home: - Try to avoid close contact with others. Stay about 6 feet away. - If possible, spend most of your time in a separate room from others. - Use a face mask if you will be in close contact with others such as sharing a room or vehicle. - Have someone wipe down common surfaces in the home. Use household bulk sealer operator every day on areas like doorknobs, counters, or sinks. - Cough or sneeze into a tissue. Throw the tissue away right after use. If a tissue is not available, cough or sneeze into your elbow. - Wash your hands often. Wash them after sneezing or coughing. Use soap and water and wash for at least 20 seconds. Alcohol based hand dry cleaner presser can be used if soap and water is not available. - Do not prepare food for others. Avoid sharing personal items like forks, spoons, or toothbrushes. - Avoid close contact with pets while you are sick. There is no evidence of the virus passing to pets. This is a safety step until more is known about this virus. Isolation can be frustrating. Social interaction can help. Keep in touch with fr iends and family through phone and tech options. You can still interact with others in your home, just keep a safe distance of about 6 feet. Follow-up: Your doctors office will check in with you to see if there are any changes in your health. You may be asked to keep track of symptoms to share with them. They will also let you know when you are clear to be in public again. Problems to Look Out For: Contact your doctor if your recovery is not going as you expect. Get emergency care if you have problems such as: - Trouble breathing - Nonstop chest pain or pressure - Changes in awareness, confusion, or problems waking - Lips or face have bluish color - Worsening of symptoms If you think you have an emergency, call for emergency medical services right away. As taken from [facility] Doxycycline Hyclate (DOXYCYCLINE HYCLATE) 100 Mg Tablet 1 TAB PO BID for bronchitis., #14 TAB Prov: BAYRON DE LA TORRE MD 09/12/19 Justification of Admission: Justification of Admission: Justification of Admission Dx: N/A (ANA CHADWICK DO) BAYRON DE LA TORRE MD Sep 12, 2019 17:38 ANA CHADWICK DO Sep 12, 2019 19:09
[2019-09-12] MEDS ORDERED: DOXY100T PO (17:51)
[2019-09-12 18:52] LABS: GFR 59.4; POTASSIUM 3.5 mmol/L (3.5-5.1)
[2019-09-12 18:58] LABS: ALBUMIN 3.7 g/dL (3.4-5.0); TOTAL BILIRUBIN 0.4 mg/dL (0.2-1.0); TOTAL PROTEIN 7.4 g/dL (6.4-8.2)
[2019-09-12 19:00] VITALS: BP 103/73
== END 2019-09-12 19:15 | disposition home or self-care (01) ==
LOC: ER 15:57
DX: J40 Bronchitis, not specified as acute or chronic (principal); R06.02 Shortness of breath; R07.89 Other chest pain; R05 Cough; F20.9 Schizophrenia, unspecified; F31.9 Bipolar disorder, unspecified; F17.210 Nicotine dependence, cigarettes, uncomplicated; F12.90 Cannabis use, unspecified, uncomplicated; Z90.710 Acquired absence of both cervix and uterus
CPT/HCPCS: 36415; 71045; 80053; 84484; 84702; 85025; 85379; 93005; 96374; 99285; J2060

== ENCOUNTER 2019-09-14 08:37 | Emergency (ER) | payer OTHER ==
[~2019-09-14] VITALS: Ht 170.2 cm; Wt 73.2 kg
[~2019-09-14 08:37] MED LIST changes: +DOXY100T PO
[2019-09-14 08:55] VITALS: BP 103/65
[2019-09-14] MEDS ORDERED: diazePAM 5 MG TABLET PO ONE (09:00)
--- NOTE | 2019-09-14 09:02 | PHYS DOC ---
Past History Past Medical History: Anxiety, Bipolar Additional Past Medical Histor: schizoaffective disorder Past Surgical History: No Surgical History Smoking: Cigarettes, Greater than 1 pack/day Alcohol Use: None Drug Use: Marijuana General Adult EDM: Chief Complaint: SHORTNESS OF BREATH HPI: HPI: Patient is a 49-year-old female with bipolar/schizoaffective disorder who presents to the emergency department for the second time with shortness of breath. She states she cannot get a deep breath. She denies any fever chills or sweats. She denies hemoptysis. She has had a little bit of a cough but is been nonproductive. No nausea or vomiting no body aches. She was treated with Ativan the last time she was in the emergency department. [] Review of Systems: Review of Systems: Constitutional: Denies fever or chills Eyes: Denies change in visual acuity HENT: Denies nasal congestion or sore throat Respiratory: Per HPI Cardiovascular: Denies chest pain or edema GI: Denies abdominal pain, nausea, vomiting, bloody stools or diarrhea : Denies dysuria Musculoskeletal: Denies back pain or joint pain Integument: Denies rash Neurologic: Denies headache, focal weakness or sensory changes Endocrine: Denies polyuria or polydipsia Lymphatic: Denies swollen glands Psychiatric: Reports anxiety Heart Score: Risk Factors: Risk Factors: DM, Current or recent (<one month) smoker, HTN, HLP, family history of CAD, obesity. Risk Scores: Score 0 - 3: 2.5% MACE over next 6 weeks - Discharge Home Score 4 - 6: 20.3% MACE over next 6 weeks - Admit for Clinical Observation Score 7 - 10: 72.7% MACE over next 6 weeks - Early Invasive Strategies Current Medications: Current Meds: Current Medications Medications (Trade) Dose Ordered Sig/Zheng Start Time Stop Time Status Last Admin Dose Admin Diazepam (Valium) 5 mg 1X ONCE 09/14/19 09:00 09/14/19 09:01 Allergies: Allergies: Allergies Coded Allergies Type Severity Reaction Last Updated Verified No Known Drug Allergies 09/12/19 No Physical Exam: PE: Constitutional: Well developed, well nourished, no acute distress, non-toxic appearance. [] HENT: Normocephalic, atraumatic, bilateral external ears normal, oropharynx moist, no oral exudates, nose normal. [] Eyes: PERRLA, EOMI, conjunctiva normal, no discharge. [] Neck: Normal range of motion, no tenderness, supple, no stridor. [] Cardiovascular:Heart rate regular rhythm, no murmur [] Lungs & Thorax: Bilateral breath sounds clear to auscultation, hyperventilating [] Abdomen: Bowel sounds normal, soft, no tenderness, no masses, no pulsatile masses. [] Skin: Warm, dry, no erythema, no rash. [] Back: No tenderness, no CVA tenderness. [] Extremities: No tenderness, no cyanosis, no clubbing, ROM intact, no edema. [] Neurologic: Alert and oriented X 3, normal motor function, normal sensory function, no focal deficits noted. [] Psychologic: Extremely anxious l. [] EKG: EKG: [] Radiology/Procedures: Radiology/Procedures: [] Course & Med Decision Making: Course & Med Decision Making Pertinent Labs and Imaging studies reviewed. (See chart for details) [ED course: Evaluation reveals a 49-year-old female with severe anxiety. She is hyperventilating. I suspect most of her symptoms are related to her panic disorder. She was given 5 mg of Valium during her stay in the department. I have strongly recommended that she follow-up as an outpatient with the guidance center to have her medications adjusted.] Kalee Disclaimer: Kalee Disclaimer: This electronic medical record was generated, in whole or in part, using a voice recognition dictation system. Departure Departure: Impression: Primary Impression: Anxiety about health Additional Impression: Psychogenic hyperventilation Disposition: HOME/RESIDENCE PRIOR TO ADM Condition: STABLE Referrals: ALBERTINA WRIGHT MD (PCP) Patient Instructions: Anxiety and Panic Attacks, Hyperventilation Additional Instructions: Follow-up immediately with the guidance center for assessment and medication adjustment. Return to the emergency department with any new or concerning symptoms Justification of Admission: Justification of Admission: Justification of Admission Dx: Idania FITZPATRICKJAYASHREE Epifanio HERNANDEZ Sep 14, 2019 09:02
== END 2019-09-14 09:12 | disposition home or self-care (01) ==
LOC: ER 08:37
DX: F41.8 Other specified anxiety disorders (principal); R06.4 Hyperventilation; F31.9 Bipolar disorder, unspecified; F20.9 Schizophrenia, unspecified; F17.210 Nicotine dependence, cigarettes, uncomplicated
CPT/HCPCS: 99283

== ENCOUNTER → 2020-08-22 | Outpatient (CLI) | payer MEDICAID ==
--- NOTE | 2020-08-22 15:23 | RAD ---
AP view of the pelvis and two-view study of the right hip Clinical indications: Fall. Right hip bruising and pain. FINDINGS: No acute fracture or dislocation or lytic process evident. Hip joints are symmetric. No esha stases of the symphysis pubis or either SI joint is seen. IMPRESSION: No acute osseous pathology. Electronically signed by: Nate Blank MD (08/22/2020 3:21 PM) [id number]
--- NOTE | 2020-08-22 15:27 | RAD ---
Three-view right hand study Clinical indications: Fall on Tuesday. Bruising and pain. FINDINGS: There are spiral fractures of the shafts of the third and fourth metacarpal bones. There is mild medial displacement of the distal fracture segments by 2 mm. No angulation of the fractures is seen. No dislocation or lytic process is seen. IMPRESSION: Acute fractures of the third and fourth metacarpal bones. Electronically signed by: Nate Blank MD (08/22/2020 3:25 PM) [id number]
== END ==
LOC: RAD 14:56
PROVIDERS: ATTEND Nurse Practitioner Family
DX: S62.322A Displaced fracture of shaft of third metacarpal bone, right hand, initial encounter for closed fracture (principal); S62.324A Displaced fracture of shaft of fourth metacarpal bone, right hand, initial encounter for closed fracture; W19.XXXA Unspecified fall, initial encounter; Y93.89 Activity, other specified; Y92.89 Other specified places as the place of occurrence of the external cause; Y99.8 Other external cause status
CPT/HCPCS: 73130; 73502

== ENCOUNTER → 2020-10-20 | Outpatient (CLI) | payer MEDICAID ==
--- NOTE | 2020-10-20 14:41 | RAD ---
EXAM: Right hand, 3 views. HISTORY: Pain. Fall. COMPARISON: 08/22/2020 FINDINGS: 3 views of the right hand are obtained. There has been slight interval callus formation tiny rounding a mildly displaced oblique fractures of the third and fourth metacarpals. No new fracture is seen. IMPRESSION: Slight interval healing of third and fourth metacarpal fractures. Electronically signed by: Mallory Parsons MD (10/20/2020 2:39 PM) [id number]
== END ==
LOC: RAD 14:05
PROVIDERS: ATTEND Orthopaedic Surgery Hand Surgery
DX: S62.392A Other fracture of third metacarpal bone, right hand, initial encounter for closed fracture (principal); S62.394A Other fracture of fourth metacarpal bone, right hand, initial encounter for closed fracture; W19.XXXA Unspecified fall, initial encounter; Y93.89 Activity, other specified; Y92.89 Other specified places as the place of occurrence of the external cause; Y99.8 Other external cause status
CPT/HCPCS: 73130

== ENCOUNTER → 2021-07-23 | Outpatient (CLI) | payer MEDICAID ==
[2021-07-23 12:30] LABS: BASO % 1 % (0-3); EOS # 0.1 x10^3/uL (0.0-0.7); EOS % 1 % (0-3); HEMATOCRIT 39.9 % (36.0-47.0); HEMOGLOBIN 13.4 g/dL (12.0-15.5); LYMPH # 1.6 x10^3/uL (1.0-4.8); LYMPH % 24 % (24-48); MEAN CORPUSCULAR HEMOGLOBIN 30 pg (25-35); MEAN CORPUSCULAR HGB CONC 34 g/dL (31-37); MEAN CORPUSCULAR VOLUME 89 fL (79-100); MONO # 0.6 x10^3/uL (0.0-1.1); MONO % 8 % (0-9); NEUT # 4.4 x10^3uL (1.8-7.7); NEUT % 66 % (31-73); PLATELET COUNT 400 x10^3/uL (140-400); RED BLOOD COUNT 4.48 x10^6/uL (3.50-5.40); WHITE BLOOD COUNT 6.6 x10^3/uL (4.0-11.0)
[2021-07-23 12:37] LABS: ALBUMIN 3.4 g/dL (3.4-5.0); ALBUMIN/GLOBULIN RATIO 1.1 (1.0-1.7); CALCIUM 8.7 mg/dL (8.5-10.1); CREATININE 0.8 mg/dL (0.6-1.0); GFR 76.2; POTASSIUM 4.6 mmol/L (3.5-5.1); TOTAL BILIRUBIN 0.3 mg/dL (0.2-1.0); TOTAL PROTEIN 6.4 g/dL (6.4-8.2)
[2021-07-24 05:09] LABS: HEMOGLOBIN A1C 5.6 % (4.8-5.6)
[2021-07-24 19:55] LABS: CHOLESTEROL/HDL RATIO 8.1; FREE T4 1.03 ng/dL (0.76-1.46); THYROID STIM HORMONE (TSH) 1.105 uIU/mL (0.358-3.740)
== END ==
LOC: LAB 11:17
PROVIDERS: ATTEND Physician Assistant
DX: Z79.899 Other long term (current) drug therapy (principal)
CPT/HCPCS: 36415; 80053; 80061; 83036; 84439; 84443; 84480; 85025